=== PATIENT | female | born 1995 | race Caucasian/White ===

== ENCOUNTER 2021-10-18 14:47 | Emergency (ER) | payer OTHER, SELFPAY ==
--- NOTE | ~2021-10-18 | CT_ITS ---
EXAMINATION: CT abdomen pelvis w con DATE: 10/18/2021 17:00 INDICATION: R flank and abd pain TECHNIQUE: Computed tomography (CT) of the abdomen and pelvis was performed with 100 mL Omnipaque-300 intravenous contrast. Automated exposure control and iterative reconstruction technique were employe d. The dose-length product was 1669.12 mGy-cm. COMPARISON: None. FINDINGS: Lower thorax: Unremarkable Liver: Hepatomegaly and diffuse low-density. Biliary/Gallbladder: Gallbladder is absent. No bile duct dilation. Pancreas: No mass or duct dilation. Spleen: Normal. Adrenals:No mass. Kidneys: No mass, stone, or hydronephrosis. Mild bilateral nephrocalcinosis. GI tract: No small or large bowel dilation. Appendix not visualized. Mesentery/Peritoneum: No ascites, mass, or free air. Retroperitoneum: No mass. Pelvis: Pelvic organs are within normal limits. Soft Tissues: Small fat-containing umbilical hernia, with minimal surrounding inflammatory change. Bones: No acute osseous finding. IMPRESSION: Hepatomegaly and steatosis. Minimal inflammation of a small fat-containing umbilical hernia. No other acute or potentially acute abdominopelvic finding. Reviewed, dictated and finalized at location K. IMPRESSION: Hepatomegaly and steatosis. Minimal inflammation of a small fat-containing umbi lical hernia. No other acute or potentially acute abdominopelvic finding.
--- NOTE | ~2021-10-18 | XR_ITS ---
EXAMINATION: XR chest 2V 10/18/2021 15:39 INDICATION: Cough PROCEDURE: 2 view chest COMPARISON: No prior studies for comparison FINDINGS: The lungs are clear. The cardiomediastinal silhouette is within normal limits. There are no pleural effusions. There is no pneumothorax suspected. IMPRESSION: 1: NO ACUTE CARDIOPULMONARY DISEASE. Reviewed, dictated and finalized at location A.
[2021-10-18 14:53] VITALS: BP 139/105; PULSE 76; RESP 18; TEMP 36.9; O2SAT 98
--- NOTE | 2021-10-18 15:30 | ED.BACK ---
HPI - Back Pain/Injury General Chief Complaint: Back Pain/Injury Stated Complaint: back pain and sob Time Seen by Provider: 10/18/21 15:06 Source: RN notes reviewed History of Present Illness HPI Narrative: Patient presents emergency department from home for right flank pain. He states symptoms began last night and worsened today the pain described as sharp and stabbing is worse with deep inspiration and movement of the torso. She denies any direct trauma or injury. She denies any fevers or chills, chest pain abdominal pain nausea vomiting or any other symptoms. States she not taking medication for the pain at home Related Data Home Medications Medication Instructions Recorded Confirmed cholecalciferol (vitamin D3) 25 mcg PO DAILY 10/18/21 [Vitamin D3] dextroamphetamine-amphetamine 5 mg PO DAILY 10/18/21 [Adderall] metformin 500 mg PO DAILY 10/18/21 Allergies Allergy/AdvReac Type Severity Reaction Status Date / Time No Known Allergies Allergy Verified 10/18/21 15:05 Review of Systems Review of Systems: Gen.: Denies fevers or chills ENT: Denies congestion Respiratory: Denies shortness of breath or cough CV: Denies chest pain or palpitations GI: Denies abdominal pain nausea, emesis or diarrhea reports right flank pain denies burning, urgency, frequency or hematuria Musculoskeletal: Denies back pain or muscle pain Neuro: Denies numbness, tingling, weakness or focal weakness Skin: Denies rash Except as documented, all other systems reviewed and negative FOR[facility]LY [facility] Past Medical History Medical History (Updated 10/18/21 @ 18:01 by Chuck Pearl DO) Patient denies significant medical history Social History Social History (Updated 10/18/21 @ 15:31 by Chuck Pearl DO) Smoking status: Never smoker Exam Narrative: APPEARANCE: No acute distress, nontoxic, resting in bed EYES: EOMI HEENT: Normocephalic, atraumatic, OMM RESPIRATORY: No respiratory distress Clear to auscultation bilaterally with no rhonchi wheezing or rales. CARDIOVASCULAR: Regular rate and rhythm without murmurs rubs or gallops. ABDOMINAL: Soft, nondistended tender palpation right upper quadrant no tenderness in right lower quadrant, left lower quadrant left upper quadrant no rebound or guarding, right flank tenderness no overlying rash pain increased with deep inspiration and rotation of the torso MUSCULOSKELETAl: Moves all extremities. No clubbing, cyanosis or edema. Back: No midline thoracic or lumbar tenderness palpation NEURO: Awake and alert. Following commands, speech normal, no focal deficits SKIN:: Warm, dry. No rashes lesions or abrasions PSYCHIATRIC: Normal affect/mood, Course Course Emergency Course: Patient states pain is improved Discussed with patient results of workup and diagnosis. Discussed need for follow-up with primary care, proper use of medication, and reasons to return to the emergency department. Patient understands and agrees to current treatment plan Vital Signs Vital signs: Vital Signs Temperature 98.5 F 10/18/21 14:53 Pulse Rate 76 10/18/21 14:53 Respiratory Rate 18 10/18/21 14:53 Blood Pressure 139/105 H 10/18/21 14:53 Pulse Oximetry 98 10/18/21 14:53 Temperature 98.5 F 10/18/21 14:53 Pulse Rate 76 10/18/21 14:53 Respiratory Rate 18 10/18/21 14:53 Blood Pressure 139/105 H 10/18/21 14:53 Pulse Oximetry 98 10/18/21 14:53 MDM - Back Pain/Injury MDM Narrative Medical decision making narrative: Patient with right flank pain since yesterday. Initial lab results show normal D-dimer chest x-ray shows no acute process CT abdomen pelvis shows no acute process patient previ will discharge with pain medication muscle relaxers follow-up as an outpatient ous gallbladder removed mild elevation liver enzymes no overlying rash to suggest shingles UA questionably mild UTI no signs of kidney stone Lab Data Result diagrams: 10/18/21 15:45 10/18/21 15:45
[2021-10-18] MEDS: SODIUM CHLORIDE 0.9% IV 1,000 ML 999 ML IV CONT (15:43)
[2021-10-18] MEDS: KETOROLAC 30 MG/ML VIAL (*BKC) IV PUSH (15:44)
[2021-10-18 15:54] LABS: Basophils Percent Auto 0.3 % (0.2-1.2); Eosinophils Absolute Auto 0.3 K/mm3 (0-0.3); Hematocrit 47.4 % (37.0-47.0); Hemoglobin 16.4 g/dL (12.0-15.0); Immature Granulocyte Absolute 0.02 K/mm3 (0.00-0.031); Immature Granulocyte Percent A 0.2 % (0-0.5); Lymphocytes Absolute Auto 4.82 K/mm3 (0.9-3.2); Lymphocytes Percent Auto 46.8 % (18.3-44.2); Mean Corpuscular HGB Conc 34.6 g/dl (32-36); Mean Corpuscular Hemoglobin 31.5 pg (26-34); Mean Platelet Volume 10.7 fl (7.4-10.4); Monocytes Absolute Auto 0.5 K/mm3 (0.1-0.6); Monocytes Percent Auto 5.1 % (2.6-8.5); Neutrophils Absolute Auto 4.6 K/mm3 (1.3-6.7); Neutrophils Percent Auto 44.6 % (45.5-73.1); Platelet Count Result 239 k/mm3 (150-375); Red Blood Count 5.21 M/mm3 (4.2-5.4); Red Cell Distribution Width 12.5 % (11.5-14.5); White Blood Count 10.3 K/mm3 (4.5-10.0)
[2021-10-18 16:01] LABS: Appearance Urine Slightly Cloudy (Clear); Bilirubin Urine Negative (Negative); Color Urine Yellow (Yellow); Glucose Urine UA Negative (Negative); Ketones Urine Negative (Negative); Leukocyte Esterase Ur 1+ LEU/UL (Negative); Nitrate Urine Negative (Negative); Protein Urine Negative (Negative); Urobilinogen Urine 0.2 mg/dL (<2.0)
[2021-10-18 16:04] LABS: Alanine Aminotransferase 67 U/L (6-35); Albumin Level 4.6 g/dL (3.5-5.1); Alkaline Phosphatase 52 U/L (38-126); Anion Gap 8 mmol/L (8-16); Aspartate Amino Transferase 44 U/L (14-36); Bilirubin,Total 0.6 mg/dL (0.2-1.3); Blood Urea Nitrogen 10 mg/dL (7-17); Carbon Dioxide 23 mmol/L (22-30); Chloride 106 mmol/L (98-107); Estimated CRCL calculation 159 ml/min; Estimated Glomerular Filt Rate > 60; Glucose 107 mg/dL (65-110); Potassium 4.4 mmol/L (3.4-5.0); Sodium 137 mmol/L (137-145)
[2021-10-18 16:05] LABS: Partial Thromboplastin Time 28.2 SECONDS (22.3-36.8); Prothrombin Time 12.9 Seconds (11.1-14.7)
[2021-10-18 16:08] LABS: D Dimer 0.32 ug/mL (<0.48)
[2021-10-18 16:09] LABS: Squamous Epithelial Cell Urine Moderate /hpf (Few)
[2021-10-18 16:21] LABS: Atypical Lymphocytes Present; Platelet Estimate Adequate (Adequate)
[2021-10-18 16:35] LABS: Add Urine Microscopic? YES; Blood Urine Trace-Intact (Negative)
== END 2021-10-18 18:13 | disposition home or self-care (01) ==
PROVIDERS: Emergency Provider Emergency Medicine
DX: R10.9 Unspecified abdominal pain (principal); R06.02 Shortness of breath
CPT/HCPCS: 36415; 71046; 74177; 80053; 81001; 81025; 85025; 85380; 85610; 85730; 96361; 96374; 99284; J1885; J7030; Q9967